=== PATIENT | male | born 1970 | race Caucasian/White ===

== ENCOUNTER 2021-01-17 09:58 | Emergency (ER) | payer OTHER, MEDICAID ==
[~2021-01-17] VITALS: Ht 177.8 cm; Wt 90.7 kg
[~2021-01-17 09:58] MED LIST: AUGMENTIN 875875 MG PO; CLONAZEPAM 1 MG1 M1 PO; IBUPROFEN 800800 M1 PO; PAXIL10 MG; PERCOCET 10-321 EACH PO; PERCOCET PO; REMERON15 MG PO; SEROQUEL 50 MG50 MG PO
[2021-01-17] MEDS ORDERED: BACTRIM DS TAB1 EACH PO (10:19)
[2021-01-17] MEDS ORDERED: CEPHALEXIN500 MG PO (10:19)
[2021-01-17] MEDS ORDERED: HYDROCODON-ACE1 EAC7 PO (10:19)
[2021-01-17 10:30] VITALS: BP 144/90
== END 2021-01-17 10:38 | disposition home or self-care (01) ==
LOC: M.ERS 09:58
DX: L03.115 Cellulitis of right lower limb (principal); Z88.8 Allergy status to other drugs, medicaments and biological substances; Z79.899 Other long term (current) drug therapy

== ENCOUNTER 2021-03-08 12:44 | Emergency (ER) | payer OTHER, MEDICAID ==
[~2021-03-08] VITALS: Ht 177.8 cm; Wt 90.7 kg
[~2021-03-08 12:44] MED LIST changes: +BACTRIM DS TAB1 EACH PO; +CEPHALEXIN500 MG PO; +HYDROCODON-ACE1 EAC7 PO
[2021-03-08 12:59] VITALS: BP 151/88
== END 2021-03-08 13:11 | disposition left against medical advice (07) ==
LOC: M.ERS 12:44
DX: L02.415 Cutaneous abscess of right lower limb (principal); Z53.21 Procedure and treatment not carried out due to patient leaving prior to being seen by health care provider